=== PATIENT | male | born 1955 | race Caucasian/White ===

== ENCOUNTER 2024-11-10 13:02 | Outpatient (AMB) | payer BC, SELFPAY ==
--- NOTE | 2024-11-10 12:56 | AM.OFFWIN_ITS ---
Intake Vital Signs 11/10/24 13:09 Height 5 ft 6 in Weight 78.018 kg BMI 27.8 BP 132/76 Blood Pressure Location Rt brachial Position Sitting Pulse 76 Pulse Source Pulse Oximeter Pulse Oximetry (%) 98 Oxygen Delivery Method Room Air Intake Visit Reasons: [employer] Blood coming out of anus Intake Note: Pt is here today for a walk in visit. Pt c/o rectal bleeding. Pt states that he noticed it yesterday.Pt states that he has colon resection done 7 years ago. Allergies metoprolol Allergy (Verified 11/10/24 13:12) electrical feeling in his chest Penicillins Allergy (Verified 11/10/24 13:12) Unknown HPI HPI Comments History of Present Illness Details 1340 68 yo m hx of colon mass s/p colon resec tion 7 years ago presents w/ BRPR ( bright red blood per rectum) X 24 hours inititally blood mixed w/ stool but now just painless blood ( moderate amount). Last time this happened was 7 years ago when he found out he had a mass and then had a resection. Last colonoscopy about 3 years ago. No abd pain, nausea, vomiting, fevers, chills, cp, sob. PE no hemorrhoids Plan- patient will go to the ED for further eval and tx. Expect called to [facility] [place] ed Nohemy TREJOpatch finisher of Systems Const All systems reviewed & are unremarkable except as noted in HPI and below Physical Exam Vital Signs: Last Vital Signs Pulse 76 11/10/24 13:09 BP 132/76 11/10/24 13:09 Pulse Ox 98 11/10/24 13:09 Oxygen Delivery Method Room Air 11/10/24 13:09 BMI result Body Mass Index 27.8 vss Appearance: Alert.? Oriented X3.? No acute distress.? Head: Normocephalic, atraumatic, no step-offs or deformities Eyes: Pupils equal, round and reactive to light.? CVS: Normal heart rate and rhythm.? Pulses normal.? Respiratory: No respiratory distress.? Breath sounds normal.? Abdomen: Soft and nontender.? Skin: Skin warm and dry.? Normal skin color.? Normal skin turgor.? Extremities: No lower extremity edema.? No calf ttp. 5/5 strength to bilateral upper and lower extremities Back: No midline tenderness, no C-spine tenderness, full range of motion, no CVA tenderness bilaterally sensitive: no hemorrhoids Neuro: Oriented X 3.? No motor deficit.? No sensory deficit. CN 2-12 intact Assessment & Plan Assessment & Plan (1) Rectal bleeding: Code(s): K62.5 - Hemorrhage of anus and rectum Plan Take your medications as prescribed. If you were prescribed antibiotics today, it is important that you take your medication to their entirety, do not skip any doses, do not finish them early. Follow-up with your primary care provider this week. Return to the emergency department with new or worsening symptoms. 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
[2024-11-10 13:09] VITALS: BP 132/76; PULSE 76; O2SAT 98; BMI 27.8
== END 2024-11-10 14:04 | disposition home or self-care (01) ==
PROVIDERS: Visit Provider Physician Assistant
DX: K62.5 Hemorrhage of anus and rectum (principal)

== ENCOUNTER → 2024-11-10 13:02 | Outpatient (BNVA) | payer BC, SELFPAY | PROVIDERS: Visit Provider Physician Assistant ==

== ENCOUNTER 2024-11-10 13:42 | Emergency (ER) | payer BC, SELFPAY ==
--- NOTE | ~2024-11-10 | CT_ITS ---
CLINICAL HISTORY: LGIB CT abdomen and pelvis with contrast Comparison: None available Findings: 85 mL of Omnipaque 350 was utilized for intravenous contrast. Mild bibasilar atelectasis. Liver, spleen, and pancreas are unremarkable for technique. 4 cm lesion of the left adrenal gland is favored to represent lipid rich adenoma with punctate adjacent calcification. Right adrenal gland is normal. Gallbladder is unremarkable for CT. No hydronephrosis. Filtered contrast could obscure small stones in the imaged renal collecting systems. Mild under rotation of the left kidney. Small mesenteric and periaortic lymph nodes are nonspecific and may be reactive. Calcified and noncalcified plaque involving the imaged aorta and its branches. No small bowel obstruction. Severe stool burden is present, including the cecum. Imaged appendix is retrocecal, gas-filled, and nondilated. [id number] distention of the urinary bladder with mild wall thickening of the urinary bladder. Prostate gland measures 6.2 cm transverse. Small right and [id number]-[id number] left fat containing inguinal hernias. Degenerative changes include the hips, SI joints, and spine. Small fragments dorsal to left iliac appear old chronic. Multiple foci of sclerosis appear nonaggressive and likely related to combination of the degenerative changes and bone islands. Partial fusion of the C2 and C3 with at least mild lumbar spinal stenosis by CT. IMPRESSION: 1. Mild wall thickening of the urinary bladder with moderate to severe distention. 2. No hydronephrosis. 3. 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 4. Severe stool burden. No small bowel obstruction. This document has been electronically signed by: Greyson Mackey MD on 11/10/2024 20:29:37
[2024-11-10 14:06] VITALS: BP 151/97; PULSE 82; RESP 19; TEMP 36.6; O2SAT 98; BMI 27.8
--- NOTE | 2024-11-10 14:08 | ED_ITS ---
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 Patient states overnight he had to moderate volume bloody bowel movements. Today, he had an additional. Patient denies abdominal pain, nausea, vomiting or fever. Related Data Home Medications ?Medication ?Instructions ?Recorded ?Confirmed losartan 25 mg tablet 25 mg PO DAILY 11/10/24 Allergies Allergy/AdvReac Type Severity Reaction Status Date / Time metoprolol Allergy electrical Verified 11/10/24 14:07 feeling in his chest Penicillins Allergy Unknown Verified 11/10/24 14:07 Review of Systems 2 Review of Systems: Yes all other systems are reviewed and are negative Constitutional: Constitutional: Denies fatigue and Denies fever(s) Cardiovascular: Cardiovascular: Denies chest pain and Denies dyspnea Respiratory: Respiratory: Denies cough and Denies dyspnea Gastrointestinal: Gastrointestinal: Denies abdominal pain, Reports hematochezia, Reports diarrhea, Denies nausea and Denies vomiting Endocrine: Endocrine: Denies fatigue PMFSH Past Medical History Attestation statement: The following information was validated with the patient. Social History Social History Alcohol intake: current Smoked in Last 30 Days: No Use of substances other than those prescribed or required for medical reasons: No Advance Directives: No Advance Directives Information Provided: No Do you have a plan to hurt others: No Plan Physical Exam ED Vital Signs: Vital Signs - 24 hr 11/10/24 14:06 11/10/24 18:42 11/10/24 20:39 Temperature 98 F 98.2 F 98.3 F Pulse Rate 82 79 72 Respiratory Rate 19 18 18 Blood Pressure 151/97 H 157/89 H 152/91 H Pulse Oximetry 98 96 93 Oxygen Delivery Method Room Air Room Air Room Air 11/10/24 22:45 Temperature 98.1 F Pulse Rate 66 Respiratory Rate 18 Blood Pressure 119/74 Pulse Oximetry 95 Oxygen Delivery Method Room Air BMI result Body Mass Index 27.8 Const Other: Alert, well-appearing Orientation/consciousness: patient oriented x3 Resp Effort & Inspection: normal respiratory effort Cardio Other: Normal peripheral perfusion GI Other: Abdomen is soft, nontender nondistended no guarding Skin Other: Warm dry no rash Neuro General: patient oriented x3, no focal motor deficits and CN's II-XI intact bilaterally Psych Other: Calm cooperative Course Course Course Narrative: RME performed by Aniya Munroe PA-C. Patient is a 68 year old assigned male at presenting to the emergency department with bright red rectal bleeding. Patient states he has an extensive colon history including a colon resection secondary to a mass and he began to have painless bright red bleeding. Detailed physical exam and review of systems are deferred to the assessment clinician. Labs ordered. Patient placed back in the waiting room pending room availability and results. 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 Patient states overnight he had to moderate volume bloody bowel movements. Today, he had an additional. Patient denies abdominal pain, nausea, vomiting or fever. Problem: Diverticulosis, prior precancers colonic lesion History: Per patient I have considered the following differential diagnoses: Diverticulosis, diverticulitis, recurrence of mass, hemorrhoids Plan: Given the painless rectal bleeding, this is likely diverticulosis. We will obtain a CT scan given his history of precancerous mass. Screening labs already obtained. This is not diverticulitis, he has no pain no nausea vomiting no fever. Could be internal hemorrhoids, however, given the volume, likely not. I have independently reviewed the following tests: Labs: No leukocytosis, not anemic, no electrolyte abnormality , urine not infected CT abdomen and pelvis:IMPRESSION: 1. Mild wall thickening of the urinary bladder with moderate to severe distention. 2. No hydronephrosis. 3. 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 4. Severe stool burden. No small bowel obstruction. This document has been electronically signed by: Greyson Mackey MD on 11/10/2024 20:29:37 We will be obtaining a UA now, the patient is likely retaining secondary to constipation. Lab Data 11/10/24 14:20 11/10/24 14:20 Labs: Lab Results 11/10/24 11/10/24 Range/Units 14:20 21:41 WBC 8.0 (4.8-10.8) X10*3/uL RBC 5.46 (4.60-5.80) X10*6/uL Hgb 16.9 (14.0-18.0) g/dl Hct 48.7 (42.0-52.0) % MCV 89.2 (80.0-98.0) fL MCH 31.0 (27.0-33.0) pg MCHC 34.7 (31.0-36.0) g/dl RDW 12.9 (11.0-16.0) % Plt Count 231 (160-400) X10*3/uL MPV 9.8 (9.4-12.4) fL Immature Gran % (Auto) 0.4 (0.0-0.4) % Neut % (Auto) 65.9 (45-73) % Lymph % (Auto) 21.8 (20-40) % [place] % (Auto) 10.0 (2-11) % Eos % (Auto) 0.0 (0-4) % Baso % (Auto) 1.9 (0-2) % Lymph # (Auto) 1.8 (1.2-4.9) X10*3/uL [place] # (Auto) 0.8 (0.1-1.2) X10*3/uL Eos # (Auto) 0.0 (0.0-0.4) X10*3/uL Baso # (Auto) 0.2 (0.0-0.2) X10*3/uL Abs Immat Gran (auto) 0.03 (0.00-0.03) X10*3/uL Absolute Neuts (auto) 5.3 (2.0-8.3) x10*3/uL Absolute Nucleated RBC 0.000 (0.0-0.012) X10*3/uL Nucleated RBC % (auto) 0.0 (0.0-0.2) /100WBC Sodium 141 (135-145) mmol/L Potassium 4.1 (3.3-5.1) mmol/L Chloride 103 (96-108) mmol/L Carbon Dioxide 28 (22-29) mmol/L Anion Gap 14 (12-20) BUN 13 (9-16) mg/dL Creatinine 1.19 (0.5-1.4) mg/dL Estim Creat Clear Calc 60.0 Estimated GFR > 60 Random Glucose 106 (60-115) mg/dL Calcium 9.2 (8.4-10.2) mg/dL Magnesium 2.4 (1.6-2.6) mg/dL Total Bilirubin 0.6 (0.0-1.0) mg/dL AST 31 (5-37) U/L ALT 35 (0-40) U/L Alkaline Phosphatase 67 (39-117) U/L Total Protein 7.0 (6.5-8.0) g/dL Albumin 4.3 (3.5-5.0) g/dL Urine Color Yellow Urine Appearance Clear Urine pH 7.0 (5.0-9.0) Ur Specific [place] >= 1.030 H (1.005-1.025) Urine Protein Negative (Neg-Trace) mg/dL Urine Glucose (UA) Negative (Negative) mg/dL Urine Ketones Negative (Negative) mg/dL Urine Blood Negative (Negative) Urine Nitrite Negative (Negative) Ur Leukocyte Esterase Negative (Negative) Discharge Plan Discharge Clinical Impression: Rectal bleeding, Constipation Patient Disposition: Home, Self-Care Instructions: Gastrointestinal Bleeding (ED), Constipation (ED), Rectal Bleeding (ED) Additional Instructions: There was no obvious source identified for your rectal bleeding of the CT scan. You had no lab abnormalities in your urine was not infected. However, you were found to be constipated. See home care instructions. Use [id number] Colace, this is a stool softener, daily. In addition, use [id number] MiraLax, 1 to 2 times a day, until you begin having more regular bowel movements. In regard to the rectal bleeding, you need to follow up with your materials coordinator, you will require a colonoscopy. Prescriptions: No Action losartan 25 mg tablet 25 mg PO DAILY Print Language: Fijian
[2024-11-10 14:27] LABS: MANUAL DIFF FLAG NO
[2024-11-10 14:29] LABS: Basophils Absolute Auto 0.2 X10*3/uL (0.0-0.2); Basophils Percent Auto 1.9 % (0-2); Hematocrit 48.7 % (42.0-52.0); Hemoglobin 16.9 g/dl (14.0-18.0); Imm Gran Abs Auto 0.03 X10*3/uL (0.00-0.03); Imm Gran Pct Auto 0.4 % (0.0-0.4); Lymphocytes Absolute Auto 1.8 X10*3/uL (1.2-4.9); Lymphocytes Percent Auto 21.8 % (20-40); Mean Corpuscular HGB Conc 34.7 g/dl (31.0-36.0); Mean Corpuscular Volume 89.2 fL (80.0-98.0); Mean Platelet Volume 9.8 fL (9.4-12.4); Monocytes Absolute Auto 0.8 X10*3/uL (0.1-1.2); Neutrophils Absolute Auto 5.3 x10*3/uL (2.0-8.3); Neutrophils Percent Auto 65.9 % (45-73); Platelet Count 231 X10*3/uL (160-400); Red Blood Count 5.46 X10*6/uL (4.60-5.80); Red Cell Distribution Width 12.9 % (11.0-16.0)
[2024-11-10 14:42] LABS: Alanine Aminotransferase 35 U/L (0-40); Albumin Level 4.3 g/dL (3.5-5.0); Alkaline Phosphatase 67 U/L (39-117); Anion Gap 14 (12-20); Aspartate Amino Transferase 31 U/L (5-37); Bilirubin Total 0.6 mg/dL (0.0-1.0); Blood Urea Nitrogen 13 mg/dL (9-16); Calcium 9.2 mg/dL (8.4-10.2); Carbon Dioxide 28 mmol/L (22-29); Chloride 103 mmol/L (96-108); Estimated Glomerular Filt Rate > 60; Glucose Random 106 mg/dL (60-115); Magnesium 2.4 mg/dL (1.6-2.6); Potassium 4.1 mmol/L (3.3-5.1); Sodium 141 mmol/L (135-145)
[2024-11-10 18:42] VITALS: BP 157/89; PULSE 79; RESP 18; TEMP 36.8; O2SAT 96
[2024-11-10] MEDS: iohexoL 350 MG/ML 100 ML INFUS..BTL 85 ML IV (19:54)
[2024-11-10 20:39] VITALS: BP 152/91; PULSE 72; RESP 18; TEMP 36.8; O2SAT 93
[2024-11-10 21:54] LABS: Appearance Urine Clear; Color Urine Yellow; Glucose Urine UA Negative (Negative); Leukocyte Esterase Urine Negative (Negative); Nitrite Urine Negative (Negative); Specific Gravity - Urine >= 1.030 (1.005-1.025); Urine Blood Negative (Negative); Urine Ketones Negative (Negative); Urine Protein Negative (Neg-Trace)
[2024-11-10 22:45] VITALS: BP 119/74; PULSE 66; RESP 18; TEMP 36.7; O2SAT 95
[2024-11-10 23:32] VITALS: BP 119/74; PULSE 66; RESP 18; TEMP 36.7; O2SAT 95
== END 2024-11-10 23:41 | disposition home or self-care (01) ==
PROVIDERS: Physician Assistant Medical; Emergency Provider Emergency Medicine
DX: K62.5 Hemorrhage of anus and rectum (principal); K59.00 Constipation, unspecified; Z79.899 Other long term (current) drug therapy
CPT/HCPCS: 36415; 74177; 80053; 81003; 83735; 85025; 99284; Q9967

== ENCOUNTER → 2024-11-10 19:18 | Outpatient (BNV) | payer BC, SELFPAY | PROVIDERS: Emergency Provider Emergency Medicine; Visit Provider Radiology Neuroradiology | DX: N32.89 Other specified disorders of bladder (principal); D35.02 Benign neoplasm of left adrenal gland | CPT/HCPCS: 74177 ==